=== PATIENT | female | born 1970 | race Caucasian/White ===

== ENCOUNTER 2025-01-09 16:35 | Emergency (ER) | payer SELFPAY ==
--- OUTSIDE RECORDS SUMMARY | 2025-01-09 16:37 | XMS_ITS | Clinical Summary ---
Author Organization [employer] Address [address] [place] [address] Care Team Providers Care Camp Counselor Name Role Phone Unavailable Primary Care Provider Unavailabl e Allergies No known active allergies Medications multivitamins-i genevieve (DAILY MULTI-VITAMINS/ IRON) tablet Take 1 tablet by mouth once daily. 0 10/17/2012 Active FLUoxetine (PROZAC) 20 mg capsuleIndicati ons:Depressive disorder Take 1 Capsule (20 mg) by mouth once daily. Due for recheck before next refill 90 Capsule 05/23/2021 Active Active Problems Problem Noted Date Diagnosed Date Advanced maternal age in 05/13/2012 Supervision of other normal 12/30/2009 Overview (10/17/2012): Declines genetic testing Signed electronically by Allie Khan MD ......... 7:45 PM 05/13/2012 DTAP 08/20/2012 10/17/2012 No beta Strep group B isolated Depressive disorder, not elsewhere classified Resolved Problems Problem Noted Date Diagnosed Date Resolved Date Breech presentation 04/25/2010 05/23/19 11 Immunizations Immunization Administration Dates Next Due AMB Influenza, IIV3 (Age >=3 years)(Flu Clinic [facility]) 04/21/2010 DTaP 06/18/2010 Influenza A (H1N1), Inactivated (Age >=3 Years) 04/09/2009 Influenza, High-dose Inactivated 01/19/2015 Influenza, IIV3 (Age >=3 years) 12/31/2012 Influenza, IIV4 01/19/2015 Tdap 08/20/2012 Family History Medical History Relation Name Comments Good Health Brother 3 Good Health Brother 4 Alcohol/Drug Father etoh Psychiatric illness Father depressi on Arthritis Mother Osteoporosis Mother Good Health Sister 2 Relation Name Status Comments Brother 1 Alive Brother 2 Alive Brother 3 Brother 4 Father Alive Mother Alive Sister 1 Alive Sister 2 Social History Tobacco Use Types Packs/Day Years Used Date Smoking Tobacco: Never Smokeless Tobacco: Never Tobacco Cessation:Counseling Given: Yes Alcohol Use Standard Drinks/Week Comments No 0 (1 standard drink = 0.6 oz pur e alcohol) PHQ-2 Answer Date Recorded PHQ-2 TOTAL SCORE 2 01/06/2020 Social Connections Answer Date Recorded Frequency of Communication with Friends and Fami ly Not on file 04/23/2021 Financial Resource Strain Answer Date R ecorded Difficulty of Paying Living Expenses Not on file 04/23/2021 Difficulty of Paying Living Expenses Not on file 04/23/2021 Comments No Sex and Gender Information Value Date Recorded Sex Assigned at Not on file Legal Sex Female 5:43 AM GLAZE SPRAYER Gender Identity Not on file Sexual Orientation Not on file Obstetrics History Para Term AB IAB SAB Ectopic Multiple Livin g Live Births 7 4 4 1 1 4 Date Outcome GA Total Labor Labor/2nd/3rd Weight Sex Type Anes PTL Anabella A1 A5 Name Clin 001 Term 38w 0d 9h 00m/ 3.63 kg (8 lb) F Tate Jones 2003 Term 40w 0d 4.37 kg (9 lb 10 oz) M Hardy 004 Term 41w 0d 4h 00m/ 4.37 kg (9 lb 10 oz) M Tate Chowdhury 08/2006 SAB 7w0 d 011 Term 37w 0d 6h 00m/ F Vag Layne Comments:induction 2011 7w0 d 013 40w 0d 4.25 kg (9 lb 6 oz) M Tate Marten Comments:System Genera royce. Please review and update details. Last Filed Vital Signs Vital Sign Reading Time Taken Comments Blood Pressure 104/65 01/06/2020 9:32 AM CDT Pulse 78 01/06/2020 9:32 AM CDT Temperature 36.4 C (97.6 F) 10/22/2018 9:11 AM CDT Respiratory Rate 14 01/06/2020 9:32 AM CDT Oxygen Saturation 98% 01/06/2020 9:32 AM CDT Inhaled Oxygen Concentration - - Weight 62.6 kg (138 lb) 01/06/2020 9:32 AM CDT Height 167.6 cm (5' 6) 01/06/2020 9:32 AM CDT Body Mass Index 22.27 01/06/2020 9:32 AM CDT Plan of Treatment Health Maintenance Due Date Last Done Comments Hepatitis C screening for ag e 18-79 1988 Hepatitis B series for 19+ ( 1 of 3 - 19+ 3-dose series) 1989 Colonoscopy through age 75 2015 Mammogram for age 45-75 05/14/2018 05/14/2017 Pneumococcal series for age 50+ (1 of 1 - PCV) 2020 Zoster (shingles) series for age 50+ (1 of 2) 2020 BMI (ht and wt on same day) for age 18+ 01/05/2021 01/06/2020, 10/22/2018, 02/19/2018, Additional history exists Depression screening for age 12+ 01/05/2021 01/06/2020, 10/22/2018, 07/05/2017, Additional history exists Lipids for age 45-75 05/09/2021 05/09/2016 Tetanus booster 08/20/2022 08/20/2012 Pap test for age 21-65 01/05/2023 0, 05/09/2016, 05/13/2012, Additional history exists COVID-19 vaccine series ( - season) 2024 Influenza Vaccine (#1) 2024 5, 01/19/2015, 12/31/2012, Additional history exists RSV vaccine for adults or (1 - 1-dose 75+ series) 2045 HIV for age 15-65 Completed 05/03/2012, , 10/28/2007 Procedures Procedure Name Priority Date/Time Associated Diagnosis Comments SERVICE CLERK THIN PREP PAP SCREEN IMAGED Routine 01/06/2020 9:55 AM CDT Pap smear for cervical cancer screening XR MAMMO BILAT SCREENING Routine 05/14/2017 11:05 AM GLAZE SPRAYER Visit for screening mammogram LIPID PANEL W REFLEX MEASURED LDL Routine 05/09/2016 1:57 PM GLAZE SPRAYER Screening for lipoid disorders ANTI HIV 1/2 Routine 05/03/2012 9:45 AM GLAZE SPRAYER Supervision of other normal (HC) from Last 3 Months or Most Recently Relevant to Health Maintenance Results * SERVICE CLERK THIN PREP PAP SCREEN IMAGED (01/06/2020 9:55 AM CDT) Case Report Gynecologic Cytology Report Case: [id number] Authorizing Provider: Fallon Khan Collected: 01/06/2020 0955 MD Sulma Ordering Location: [facility] Received: 01/06/2020 1049 Clinic First Screen: Shania Villatoro Pathologist: Jen Ya MD Specimen: SERVICE CLERK ThinPrep Vial Screening, Cervical 01/16/2020 10:58 AM CDT [facility] INTERPRETATION/ RESULT NEGATIVE FOR INTRAEPITHELIAL LESION OR MALIGNANCY (NIL) (none) 01/16/2020 10:58 AM CDT [facility] at 1058 CDT OTHER Endometrial cells in a woman more than 45 years of age. 01/16/2020 10:58 AM CDT [facility] EDUCATIONAL NOTES & SUGGESTIONS Endometrial cells after the age of 45, particularly out of phase or after menopause, may be associated with benign endometrium, hormonal alterations and less commonly with endometrial uterine abnormalities. Endometrial cells correlate with the menstrual history provided. 01/16/2020 10:58 AM CDT [facility] SPECIMEN ADEQUACY Satisfactory for evaluation Endocervical component present 01/16/2020 10:58 AM CDT [facility] HPV REQUEST HPV if ASCUS 01/16/2020 10:58 AM CDT [facility] Date of LMP 01/03/2020 01/16/2020 10:58 AM CDT [facility] Last Pap Date 05/09/16 01/16/2020 10:58 AM CDT [facility] Last Pap Result NIL 0 10:58 AM CDT [facility] Abnormal Pap or [place] Bx in last 5 years No 01/16/2020 10:58 AM CDT [facility] Menstrual Status Regular Periods 01/16/2020 10:58 AM CDT [facility] [place] Bx Done Today No 01/16/2020 10:58 AM CDT [facility] Additional Information None given 01/16/2020 10:58 AM CDT [facility] Comment: Cytology is screened at [facility] - [address], [place] [address] [address] [facility] - [address], [place] [address] and [facility] - [address] [place] [address] Interpreted at [facility] - [address], [place] [address] Automated Review Successful 01/16/2020 10:58 AM CDT [facility] Comment:Specimen processed s uccessfully by automated evening or night nurse supervisor device, ThinPrep Imaging System, [employer] Note The pap test is a screening technique, not a diagnostic procedure. It is used primarily to screen for squamous cancers and precursor lesions. Published studies have shown that it is subject to both false negative and false positive results. The pap test should not be used as the sole means to diagnose or exclude pre-malignant and malignant lesions. 01/16/2020 10:58 AM CDT [facility] Other (Cervical) Non-Blood / Unknown 01/06/2020 9:55 AM CDT 01/06/2020 10:49 AM CDT us Fallon Khan MD PATHOLOGY/CYTOLOGY Final Result [facility] [address] [place] [address], [place] * XR MAMMO BILAT SCREENING (05/14/2017 11:05 AM GLAZE SPRAYER) Anatomical Region Laterality Modality BREASTS, Breast Left, Breast Right Bilateral Mammography Impressions 05/15/2017 12:30 PM GLAZE SPRAYER There is no radiographic evidence for malignancy. Recommend annual mammograms. A lay language report of this examination will be provided to the patient. MAMMOGRAM ASSESSMENT: ACR 2 Benign Narrative 05/15/2017 12:30 PM GLAZE SPRAYER XR MAMMO BILAT SCREENING [[id number]] CLINICAL HISTORY: This is an asymptomatic 46 y.o. patient. INDICATION FOR EXAM: Mammogram Screening. TECHNIQUE: CC & MLO views were obtained. This digital study was evaluated with the assistance of Computer-Aided Detection. COMPARISON FILMS: This is a baseline study. FINDINGS: Mammographically, the breast tissue is heterogeneously dense, which could obscure detection of small masses. No suspicious masses or microcalcifications. Benign appearing calcifications within left breast. Fallon Khan MD MAMMO Fi nal Result * LIPID PANEL W REFLEX MEASURED LDL (05/09/2016 1:57 PM GLAZE SPRAYER) CHOLESTEROL,TOTAL 170 100 - 199 mg/dL 05/09/2016 2:46 PM GLAZE SPRAYER [facility] TRIGLYCERIDES 76 <150 mg/dL 05/09/2016 2:46 PM GLAZE SPRAYER [facility] HDL CHOLESTEROL 55 >40 mg/dL 7 2:46 PM GLAZE SPRAYER [facility] NON-HDL CHOLESTEROL 115 <145 mg/dl 05/09/2016 2:46 PM GLAZE SPRAYER [facility] CHOL/HDL RATIO 3.09 <4.50 05/09/2016 2:46 PM GLAZE SPRAYER [facility] LDL CHOLESTEROL 100 <=130 mg/dL 05/09/2016 2:46 PM GLAZE SPRAYER [facility] PATIENT STATUS FASTING 05/09/2016 2:46 PM GLAZE SPRAYER [facility] Blood BLOOD SPECIMEN / Unknown Venipuncture / Unknown 05/09/2016 1:57 PM GLAZE SPRAYER 05/09/2016 1:57 PM GLAZE SPRAYER Fallon Khan MD CHEMISTRY Fi nal Result [facility] [address] [place] [address], * ANTI HIV 1/2 (05/03/2012 9:45 AM GLAZE SPRAYER) ANTI HIV 1/2 Non-reacti ve [facility] Blood specimen (specimen) BLOOD SPECIMEN / Unknown 05/03/2012 9:45 AM GLAZE SPRAYER 05/03/2012 9:35 AM GLAZE SPRAYER Maggie Torres NP SEND OUTS F inal Result [facility] [place]NAL ZIP [id number] [place] [id number] from Last 3 Months or Most Recently Relevant to Health Maintenance
[2025-01-09 16:49] VITALS: BP 104/64; PULSE 62; RESP 20; TEMP 36.1; O2SAT 100; BMI 21.6
--- NOTE | 2025-01-09 17:06 | CRLHL7_ITS ---
For Patients: As a result of the Cures Act, medical imaging exams and procedure reports are released immediately into your electronic medical record. You may view this report before your referring provider. If you have questions, please contact your health care provider. INDICATION: Fall, shoulder pain TECHNIQUE: Shoulder radiograph 3 views right COMPARISON: None FINDINGS: Bone: A displaced mid clavicular fracture is present and described on separate report. Severe diffuse osteopenia is noted. Joint: The glenohumeral joint is unremarkable. The acromioclavicular joint is unremarkable. Soft tissue: Unremarkable. The visualized hemithorax is unremarkable in appearance. No radiopaque foreign bodies are seen. IMPRESSION: 1. A displaced mid clavicular fracture is present and described on separate report. Dictated by Rex Pierce MD @ 01/09/2025 5:43:04 PM Dictated by: Rex Pierce MD @ 01/09/2025 17:43:07 (Electronically Signed)
--- NOTE | 2025-01-09 17:06 | CRLHL7_ITS ---
For Patients: As a result of the Century Cures Act, medical imaging exams and procedure reports are released immediately into your electronic medical record. You may view this report before your referring provider. If you have questions, please contact your health care provider. INDICATION: Fall, shoulder pain TECHNIQUE: Clavicle radiograph 2 views right COMPARISON: None FINDINGS: Bone: There is a comminuted fracture in the mid clavicle present with the distal fragment displaced inferiorly by 1.7 cm and foreshortened by 1.4 cm. Small osseous fragments are seen within the intervening space. Severe diffuse osteopenia is noted. Joint: The glenohumeral joint is unremarkable. The acromioclavicular joint is unremarkable. The sternoclavicular joint is unremarkable but can be better assessed by CT if there is a high clinical index of suspicion for traumatic injury. Soft tissue: Unremarkable. The visualized hemithorax is unremarkable in appearance. No radiopaque foreign bodies are seen. IMPRESSION: 1. There is a comminuted fracture in the mid clavicle present with the distal fragment displaced inferiorly by 1.7 cm and foreshortened by 1.4 cm. Small osseous fragments are seen within the intervening space. Dictated by Rex Pierce MD @ 01/09/2025 5:42:30 PM Dictated by: Rex Pierce MD @ 01/09/2025 17:42:33 (Electronically Signed)
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
== END 2025-01-09 18:37 | disposition home or self-care (01) ==
PROVIDERS: Emergency Provider Family Medicine; PCP Family Medicine
DX: S42.021A Displaced fracture of shaft of right clavicle, initial encounter for closed fracture (principal); V19.3XXA Pedal cyclist (driver) (passenger) injured in unspecified nontraffic accident, initial encounter
CPT/HCPCS: 73000; 73030; 99283; 99284

== ENCOUNTER 2025-01-19 06:57 | Day surgery (SDC) | payer SELFPAY ==
[2025-01-19] VITALS (12 sets, daily range): BP systolic 102–120; BP diastolic 66–78; PULSE 69–99; RESP 14–20; TEMP 36.3–37.1; O2SAT 94–98; BMI 20.9
[2025-01-19] MEDS: LACTATED RINGERS 1000 ML 1,000 ML 100 ML IV ×2 (07:10→10:00)
--- NOTE | 2025-01-19 07:36 | W.PM.H&PU ---
History & Physical Update History & Physical Update H&P Reviewed and patient assessed: No changes noted
[2025-01-19] MEDS: SCOPOLAMINE 1 MG/3 DAY PATCH 1 PATCH TRANSDERMA (07:52)
--- NOTE | 2025-01-19 08:20 | P.ANES_ITS ---
Anesthesia Charges Start Date/Time Anesthesia Start Date: 01/19/25 Anesthesia Start Time: 09:10 Stop Date/Time Anesthesia Stop Date: 01/19/25 Anesthesia Stop Time: 10:48 Coding CPT Codes CPT Codes: ANESTH SURGERY OF SHOULDER - 67934 ([id number]) P1 - NORMAL HEALTHY PATIENT, QK - HARDWARE SALES ASSISTANT 2-4 CNCRNT ANES PROC, QX - SHED HAND SVBrandy W/ MED DIRECTION
--- NOTE | 2025-01-19 08:20 | W.ANESCHARGE ---
Anesthesia Charges Start Date/Time Anesthesia Start Date: 01/19/25 Anesthesia Start Time: 09:10 Stop Date/Time Anesthesia Stop Date: 01/19/25 Anesthesia Stop Time: 10:48 Coding CPT Codes CPT Codes: ANESTH SURGERY OF SHOULDER - 18878 ([id number]) P1 - NORMAL HEALTHY PATIENT, QK - DIETITIAN ASSISTANT 2-4 CNCRNT ANES PROC, QX - STUMP SHOOTER SVBrandy W/ MED DIRECTION
--- NOTE | 2025-01-19 09:00 | CRLHL7_ITS ---
For Patients: As a result of the Cures Act, medical imaging exams and procedure reports are released immediately into your electronic medical record. You may view this report before your referring provider. If you have questions, please contact your health care provider. Indication: Right Clavicle ORIF Technique: One fluoroscopic image of the right clavicle. Fluoroscopic time 5.2 seconds. Comparison: 01/09/2025 IMPRESSION: Fluoroscopic guidance for open reduction internal fixation right clavicular fracture. Dictated by Chiki De Dios MD @ 01/19/2025 12:42:17 PM (Electronically Signed)
[2025-01-19] MEDS: LACTATED RINGERS 1000 ML 1,000 ML 125 ML IV (09:50)
[2025-01-19] MEDS: LIDOCAINE 1%-EPI 1:100,000 20 ML INFILTRATI (09:52)
[2025-01-19] MEDS: BUPIVACAINE 0.5% 30 ML INJECTION (10:20)
--- NOTE | 2025-01-19 10:28 | PM.ORPRC ---
Procedure Note Date of procedure: 01/19/25 Procedure: PREOPERATIVE DIAGNOSES: 1. Right midshaft clavicle fracture with 120+ percent displacement and shortening; closed, acute POSTOPERATIVE DIAGNOSES: 1. Right midshaft clavicle fracture with 120+ percent displacement and shortening; closed, acute NAME OF OPERATION: 1. Right midshaft extra-articular clavicle open reduction and internal fixation 2. Intraoperative fluoroscopy interpreted by Stanislav Varner M.D. for intraoperative evaluation of fracture reduction and implant positioning. Fluoroscopy time was 5.2 seconds. SURGEON: Stanislav Varner MD HEALTH SPECIALIST: Ravi Sanchez OPA - Of note, an behavioral health assistant was critical for this case to aide in patient positioning, limb manipulation, tissue retraction, awareness of and protection of critical structures, closure, and immobilization application. ANESTHESIA: General IMPLANTS: Arthrex clavicle plate with 3.5 mm nonlocking and locking screws. TOURNIQUET: None. INDICATIONS: The patient is a pleasant, 54-year-old female who sustained a fall landing on her right shoulder. Significant pain and some deformity about the right clavicle. X-rays revealed a displaced right midshaft clavicle fracture. FINDINGS: Closed, primarily transverse midshaft clavicle fracture with substantial shortening and displacement. PROCEDURE: Following a thorough discussion of risks, benefits, and alternatives, consent was obtained and the operative extremity was marked. The patient was brought to the operating room and placed supine on the operating table. Induction of anesthesia was achieved. Appropriate time out was performed identifying proper patient, site and procedure. 1 g IV Ancef was administered within 1 hour of incision preoperatively. The right upper extremity was prepped and draped in the appropriate sterile fashion using ChloraPrep. The skin was anesthetized with 0.5% Marcaine and 1% lidocaine with epinephrine for both local anesthesia and hemostasis. Following this, sharp dissection through skin allowed evaluation of crossing neurologic structures. The periosteum was released, and subperiosteal elevation performed. The fracture ends were cleared of interposed muscle and fracture hematoma. The 2 ends were grasped with a lobster claw to help gain length. Excellent reduction was achieved. A 7 hole plate was selected. [Cortical nonlocking compression screws were placed on either side of the fracture initially. After confirming proper reduction on C-arm fluoroscopic imaging, a 2nd and 3rd screw was placed on either side of the fracture.] Of note, a single comminuted butterfly like fragment was removed as there was some limited soft tissue attached and it was not in a reducible location. Again C-arm was utilized to confirm proper screw length, fracture reduction, and plate apposition. At this stage, the wound was thoroughly irrigated with normal saline. Closure performed with 0 stratafix for the periosteum/platysma. Closure was then completed with 2-0 Vicryl for the subcutaneous, and 4-0 Monocryl for subcuticular closure. Dressings were applied along with a sling. The patient was awoken from anesthesia and transferred to PACU in stable condition. PLAN: 1. Nonweightbearing operative extremity. 2. Ice, acetominphen or ibuprofen PRN. 3. Oxycodone for pain as needed. 4. Follow up with PA visit in 10-16 days for wound check.
--- NOTE | 2025-01-19 10:54 | P.ANES_ITS ---
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
--- NOTE | 2025-01-19 10:54 | W.ANESCHARGE ---
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
== END 2025-01-19 12:46 | disposition home or self-care (01) ==
LOC: OR 06:57
PROVIDERS: PCP Family Medicine; Visit Provider Orthopaedic Surgery Sports Medicine
PROC: (CPT 23515; principal; 2025-01-19 09:00)
DX: S42.021A Displaced fracture of shaft of right clavicle, initial encounter for closed fracture (principal)
CPT/HCPCS: 23515; 00450; 73000; A9270; C1713; J0330; J0665; J0690; J1100; J1630; J2405; J2704; J3010; J3490; J7120

== ENCOUNTER 2025-02-20 08:08 | Outpatient (RCR) | payer SELFPAY | END 2025-04-02 16:03 | disposition home or self-care (01) | PROVIDERS: PCP Family Medicine; Visit Provider Physician Assistant Surgical | DX: Z48.89 Encounter for other specified surgical aftercare (principal); Z51.89 Encounter for other specified aftercare | CPT/HCPCS: 97110; 97140; 97161 ==